=== PATIENT | male | born 1990 | race Caucasian/White ===

== ENCOUNTER 2021-11-21 10:59 | Emergency (ER) | payer OTHER ==
[2021-11-21] MEDS ORDERED: NEOSPORIN TOP OINT 15GM TOP ONE (13:10)
[2021-11-21] MEDS ORDERED: BOOSTRIX/ADACEL VACCINE (DIPHTH/PERTUSS/ACELL/TETANUS) 0.5ML SYR IM ONE (13:15)
[2021-11-21 13:32] VITALS: BP 149/71
== END 2021-11-21 13:34 | disposition home or self-care (01) ==
LOC: M ED 10:59
DX: S50.812A Abrasion of left forearm, initial encounter (principal); Y04.0XXA Assault by unarmed brawl or fight, initial encounter; Y92.9 Unspecified place or not applicable; Y93.9 Activity, unspecified; Y99.9 Unspecified external cause status

== ENCOUNTER → 2023-05-03 | Outpatient (REF) ==
[2023-05-03 12:27] LABS: RSV AMPLIFICATION NEGATIVE (NEGATIVE)
== END ==
LOC: M EMP 10:08
PROVIDERS: ATTEND Family Medicine
DX: Z20.89 Contact with and (suspected) exposure to other communicable diseases (principal)

== ENCOUNTER 2024-11-07 21:17 | Emergency (ER) | payer OTHER ==
[~2024-11-07] VITALS: Ht 175.3 cm; Wt 115.7 kg
[2024-11-07 21:22] VITALS: BP 142/71; TEMP 97.4; O2SAT 98
[2024-11-07] MEDS: PROPARACAINE 0.5% OPHTH SOL 15ML OD ONE (21:30)
[2024-11-07] MEDS: FLUORESCEIN OPHTH 1 MG STRIP OD ONE (21:30)
[2024-11-07] MEDS ORDERED: ERYT5OIN25 OP (21:50)
== END 2024-11-07 22:05 | disposition home or self-care (01) ==
LOC: M ED 21:17
DX: S05.01XA Injury of conjunctiva and corneal abrasion without foreign body, right eye, initial encounter (principal); Y04.0XXA Assault by unarmed brawl or fight, initial encounter; Z79.2 Long term (current) use of antibiotics; Y92.9 Unspecified place or not applicable; Y93.89 Activity, other specified; Y99.0 Civilian activity done for income or pay